=== PATIENT | female | born 1945 | race Caucasian/White ===

== ENCOUNTER → 2024-08-02 | Outpatient (CLI) | payer MEDICARE, MEDICAID, SELFPAY ==
--- NOTE | 2024-08-02 16:38 | XR_ITS ---
Examination: Lumbar spine, 5 views Technique: Lumbar spine AP, lateral, coned lateral lower lumbar spine, bilateral obliques 5 views Exam date and time: August 08, 2024 1640 hrs. Indications: Low back pain years Findings: Significant osteopenia Lumbar levoscoliosis 10 degrees Advanced diffuse facet arthropathy Moderate to advanced diffuse lumbar degenerative disc disease most severe L1-L2 No lumbar fracture Impression: Moderate to advanced lumbar degenerative disc disease with spinal stenosis
== END | disposition home or self-care (01) ==
PROVIDERS: PCP Family Medicine; Referring Provider Nurse Practitioner; Visit Provider Nurse Practitioner
DX: M51.369 Other intervertebral disc degeneration, lumbar region without mention of lumbar back pain or lower extremity pain (principal); M48.061 Spinal stenosis, lumbar region without neurogenic claudication
CPT/HCPCS: 72110

== ENCOUNTER → 2024-09-13 | Outpatient (CLI) | payer MEDICARE, MEDICAID, SELFPAY ==
--- NOTE | 2024-09-13 09:47 | XR_ITS ---
Examination: MRI lumbar spine without contrast Date and time of exam: September 13, 2024 10:10 AM INDICATIONS: Onset lower back pain radiating down both legs beginning 2021 TECHNIQUE: Multiple MRI axial sagittal images lumbar spine FINDINGS: Minimal anterolisthesis L2 on L1 No lumbar fracture Advanced disc narrowing L1-L2, L4-L5 Diffuse lumbar disc desiccation L5-S1 2 mm central lumbar disc bulge L4-L5 4 mm central lumbar disc bulge contiguous with the L5 nerve roots L3-L4 foraminal disc bulges greater on the right side, 5 mm with mild right L3 ganglionic compression L2-L3 no disc protrusion L1-L2 no disc protrusion Impression: Advanced degenerative disc disease L1-L2, L4-L5 L5-S1 2 mm central lumbar disc bulge L4-L5 4 mm central lumbar disc bulge contiguous with the right and left L5 nerve roots L3-L4 bilateral foraminal disc bulges, 5 mm on the right side with mild right L3 ganglionic compression
== END | disposition home or self-care (01) ==
PROVIDERS: PCP Family Medicine; Referring Provider Nurse Practitioner; Visit Provider Nurse Practitioner
DX: G95.20 Unspecified cord compression (principal); M51.369 Other intervertebral disc degeneration, lumbar region without mention of lumbar back pain or lower extremity pain; M51.379 Other intervertebral disc degeneration, lumbosacral region without mention of lumbar back pain or lower extremity pain
CPT/HCPCS: 72148

== ENCOUNTER → 2024-12-23 | Outpatient (CLI) | payer MEDICARE, MEDICAID, SELFPAY | END | disposition home or self-care (01) | PROVIDERS: PCP Student in an Organized Health Care Education/Training Program; Referring Provider Student in an Organized Health Care Education/Training Program; Visit Provider Student in an Organized Health Care Education/Training Program | DX: N39.0 Urinary tract infection, site not specified (principal) | CPT/HCPCS: 87086 ==

== ENCOUNTER → 2025-01-06 | Outpatient (CLI) | payer MEDICARE, MEDICAID, SELFPAY ==
--- NOTE | 2025-01-06 14:23 | XR_ITS ---
Examination: Duplex scan of the lower extremity, unilateral left Date and time of exam: January 06, 2025 1507 hours INDICATIONS: Left leg swelling and pain beginning 4 days ago Technique: Duplex scan of the extremity veins using B-mode/grayscale imaging and Doppler spectral analysis and color flow Attention is directed to internal echogenicity, compression and augmentation involving these veins, color flow assessment, spectral analysis Findings: Major deep venous structures in the extremity demonstrate normal course and caliber. There is no evidence of deep vein thrombosis. Normal color flow and spectral analysis Impression: Negative for DVT..
== END | disposition home or self-care (01) ==
LOC: CDIM 14:16
PROVIDERS: PCP Student in an Organized Health Care Education/Training Program; Referring Provider Chiropractor; Visit Provider Chiropractor
DX: M79.669 Pain in unspecified lower leg (principal); R60.0 Localized edema
CPT/HCPCS: 93971

== ENCOUNTER 2025-01-13 11:35 | Emergency (ER) | payer MEDICARE, MEDICAID, SELFPAY ==
[2025-01-13] VITALS (8 sets, daily range): BP systolic 134–159; BP diastolic 65–67; PULSE 85–88; RESP 16–18; TEMP 36.6–36.7; O2SAT 86–100; BMI 28.3
--- NOTE | 2025-01-13 11:43 | XR_ITS ---
Examination: CTA chest with intravenous contrast 2-D reconstructions 3-D reconstructions, vascular Date and time of exam: January 13, 2025 1413 hours INDICATIONS: Onset chest pain today CTDI: vol (mGy) 10.7 DLP: (mGycm) 328 Technique: Multiple axial sections of the thorax have been obtained. 3 mm slice thickness, from below the hemidiaphragms to above the apices of the lungs. Mediastinal and lung density settings have been obtained. 2-D sagittal and coronal reconstructions. 3-D angiographic renderings, 3-D volume renderings, 3D post processing, vascular maximum intensity projections obtained. Contrast administered is 100 cc Isovue-370. Low dose protocols were performed. One or more of the following dose reduction techniques were used; automated exposure control, adjustment of the mA and/or KV according to patient size, use of iterative reconstruction technique. Findings: No thoracic aorta aneurysm dilatation or dissection Main pulmonary artery segment 32 mm No pulmonary artery emboli. No paratracheal tracheobronchial or bronchopulmonary adenopathy Small foci of pneumonia in the left upper lobe Atelectasis at the right lung base No visualized liver lesions Spleen is not enlarged No pancreatic mass Moderate osteopenia IMPRESSION: Mild pulmonary artery hypertension pattern Negative for pulmonary artery emboli No mediastinal lymphadenopathy Mild pneumonia left upper lobe
--- NOTE | 2025-01-13 11:43 | XR_ITS ---
Examination: AP chest single view Technique : AP portable upright chest single view Date and time: January 13, 2025, 1236 hours INDICATIONS: Chest pain today FINDINGS: No significant cardiac enlargement. Cardiac leads satisfactory position Moderate vascular congestion. No lobar pneumonia. Prominent osteopenia IMPRESSION: Moderate vascular congestion.
--- NOTE | 2025-01-13 11:46 | PD.EDCHEST ---
ED Chest Pain RME/HPI General Chief Complaint: Chest Pain Stated Complaint: CHEST PAIN Time Seen by Provider: 01/13/25 11:43 Source: patient and EMS Arrival date/time: 01/13/25 11:35 Mode of arrival: EMS RME / HPI RME / HPI narrative: Patient is a 79-year-old female with a history of hypothyroidism, acid reflux, hypertension, remote history of DVT and pulmonary emboli. She denies history of ACS. She had a left leg ultrasound on on the of this month that was negative for DVT. She developed central chest pain that describes as a pressure this morning at around 8:30 AM. She has nausea. She denies any change in bowel movements. She has chronic lower leg edema without any acute changes. She has no fevers or chills. Has had no syncopal episodes. She states she followed by Dr. Roman with cardiology, she does not recall her last echocardiogram. She takes Eliquis. Related Data Home Medications ?Medication ?Instructions ?Recorded ?Confirmed pantoprazole 40 mg tablet,delayed 40 mg PO QDAY 03/05/18 02/18/24 release (Protonix) levothyroxine 137 mcg tablet 100 mcg PO QDAY 03/09/18 02/18/24 amlodipine 2.5 mg tablet 2.5 mg PO QDAY 02/18/24 02/18/24 apixaban 5 mg tablet (Eliquis) 5 mg PO BID 02/18/24 02/18/24 Held on 02/18/24. Instructions: Resume on 02/19/24. meloxicam 7.5 mg tablet 7.5 mg PO QDAY 02/18/24 02/18/24 Previous Rx's ?Medication ?Instructions ?Recorded amoxicillin 875 mg-potassium 1 tab PO BID #14 tabs 01/13/25 clavulanate 125 mg tablet azithromycin 250 mg tablet 250 mg PO QDAY 4 days #4 tabs 01/13/25 Allergies Allergy/AdvReac Type Severity Reaction Status Date / Time NSAIDS (Non-Steroidal Allergy Intermediate Abdominal Verified 01/13/25 11:50 Anti-Inflamma Pain vancomycin Allergy Intermediate Hives Verified 01/13/25 11:50 aspirin Allergy Unknown GI BLEED Verified 01/13/25 11:50 ketorolac (From Toradol) Allergy Verified 01/13/25 11:50 Review of Systems Review of Systems Systems Reviewed: All systems reviewed, normal except as documented Course Quality Measures none Orders Category Date Time Status CT Screening NOW Care 01/13/25 11:43 Active EKG (ED ONLY) *Do not use* NOW Care 01/13/25 11:[address] angio chest Stat Exams 01/13/25 11:43 Completed EKG (ED Only) Stat Exams 01/13/25 11:39 Ordered XR chest 1V Stat Exams 01/13/25 11:43 Completed BNP [B-Type Natriuretic Peptide] Stat Lab 01/13/25 12:03 Completed CBC Stat Lab 01/13/25 12:03 Completed CMP [Comprehensive Metabolic Panel] Stat Lab 01/13/25 12:03 Completed D-Dimer Stat Lab 01/13/25 12:03 Completed Lipase Stat Lab 01/13/25 12:03 Completed Mag [Magnesium] Stat Lab 01/13/25 12:03 Completed Troponin I Stat Lab 01/13/25 12:03 Completed Troponin I Stat Lab 01/13/25 13:36 Completed Amoxicillin/Pot Clav 875 [Augmentin 875] Med 01/13/25 14:59 Discontinued 1 tab PO X1 ONE Aspirin Chew Med 01/13/25 11:43 Discontinued 243 mg PO X1 ONE Azithromycin Po [Zithromax PO] Med 01/13/25 15:03 Discontinued 500 mg PO X1 ONE HYDROcodone*/APAP 5/325 [[place] 5/325] Med 01/13/25 15:10 Once 1 tab PO X1 ONE Magnesium Sulfate 1 gm Ivpb [Magnesium Sulfate Ivpb] Med 01/13/25 13:19 Discontinued 1 gm in 100 ml IV X1 Morphine Inj Med 01/13/25 11:43 Discontinued 4 mg IVP X1 ONE Nitroglycerin [Nitrostat 1/150] Med 01/13/25 11:43 Discontinued 0.4 mg SL X1 ONE Ondansetron Inj [Zofran Inj] Med 01/13/25 11:50 Discontinued 4 mg IVP X1 ONE Vital Signs Vital signs: Vital Signs Temperature 98.0 F 01/13/25 11:56 Pulse Rate 86 01/13/25 11:56 Respiratory Rate 18 01/13/25 11:56 Blood Pressure 159/67 H 01/13/25 11:56 Pulse Oximetry (%) 97 01/13/25 11:56 Oxygen Delivery Method Room Air 01/13/25 11:56 Chest Pain MDM Narrative MDM Narrative:: Patient is a 79-year-old female with a history of hypothyroidism, acid reflux, hypertension, remote history of DVT and pulmonary emboli. She denies history of ACS. She had a left leg ultrasound on on the of this month that was negative for DVT. She developed central chest pain that describes as a pressure this morning at around 8:30 AM. She has nausea. She denies any change in bowel movements. She has chronic lower leg edema without any acute changes. She has no fevers or chills. Has had no syncopal episodes. She states she followed by Dr. Roman with cardiology, she does not recall her last echocardiogram. She takes Eliquis. On exam, patient is in mild distress, she is anxious appearing. Vital signs are stable. Workup reveals no leukocytosis, her hemoglobin is 10.6 and hematocrit is 31.6. D-dimer is 631, this is marginally elevated. Metabolic panel reveals mild hyperglycemia at 115, magnesium is 1.0. Metabolic panel is otherwise unremarkable. Lipase is 31. Patient received a dose of magnesium 1 g here. 13:45 She was reassessed when the above results were reviewed and they were relayed to the patient. Although her D-dimer is marginally elevated, she states her mother from pulmonary emboli and she does have a history of prior DVT and PE. Her creatinine is 0.9. Her GFR is greater than 60. This were discussed with the patient. We offered to not obtain a CT a of her chest versus obtaining one today as she is concerned she have a pulmonary emboli.. We will continue with plans of obtaining a CT of the chest to assess for possible PE. She states her pain has improved and is tolerable at this time. She does not want any more pain medication. Work appears otherwise unremarkable with exception of developing in the morning Reviewed etiology her symptoms. Discussed and her daughter who has since arrived at bedside. Patient normally lives with her in her home. Awaiting currently hospitalized. Patient and daughter agree that the family can assist in observation at home for the next few days to make sure she is improving. She will be discharged with a prescription of azithromycin and Augmentin. These have not started here. We discussed pulmonary toiletry. They agreed to have a low threshold for return here anytime for any worsening or emergent changes. Patient data External records reviewed:: EMS form Clinical information provided by:: patient and family Social determinants that could affect healthcare access:: none Patient has the following chronic illnesses:: Hypertension, acid reflux, anxiety How is presenting disease/condition affected by chronic disease/condition?: exacerbated by Evaluation data The following diagnostics were reviewed and interpreted by me:: lab results (There is no leukocytosis, there is mild anemia with a hemoglobin 10.6 and hematocrit 31.6. D-dimer is elevated at 631. Magnesium 1.0), radiology exam(s) (Chest x-ray revealed vascular tension, otherwise unremarkable. CT of the chest was obtained which revealed no pulmonary emboli however pneumonia was identified.) and EKG tracing(s) (NSR at [address] changes or dynamic t-waves. Artifact is present. ) Lab and/or radiology exams considered but not ordered:: n/a Interpretation Summary: Hypomagnesia, pneumonia, repeat troponins were obtained and were unremarkable. Medications / Prescriptions Medications or Prescriptions considered but not ordered:: n/a Medication administrations:: Medication Administration History Discontinued Medications Amoxicillin/Clavulanate Potassium (Amoxicillin/Pot Clav 875 Tablet) 1 tab PO X1 ONE Stop: 01/13/25 15:00 Aspirin (Aspirin 81 Mg Chew) 243 mg PO X1 ONE Stop: 01/13/25 11:44 Last Admin: 01/13/25 11:51 Dose: Not Given Documented By: JASON Non-Admin Reason: Contraindicated Azithromycin (Azithromycin 250 Mg Tablet) 500 mg PO X1 ONE Stop: 01/13/25 15:04 Magnesium Sulfate/Dextrose (Magnesium Sulfate Ivpb) 1 gm in 100 mls @ 100 mls/hr IV X1 ONE Stop: 01/13/25 14:18 Last Infusion: 01/13/25 14:54 Dose: Infused Documented By: Admin: 01/13/25 13:51 Dose: 100 mls/hr Documented By: GIOVANNI Morphine Sulfate (Morphine Sulf Inj 10 Mg/Ml Vial) 4 mg IVP X1 ONE Stop: 01/13/25 11:44 Last Admin: 01/13/25 11:58 Dose: 4 mg Documented By: TM Nitroglycerin (Nitroglycerin 0.4 Mg Subl Btl #25) 0.4 mg SL X1 ONE Stop: 01/13/25 11:44 Last Admin: 01/13/25 11:56 Dose: 0.4 mg Documented By: TM Ondansetron HCl (Ondansetron Inj 2 Mg/Ml Inj 2 Ml) 4 mg IVP X1 ONE; Protocol Stop: 01/13/25 11:51 Last Admin: 01/13/25 12:01 Dose: 4 mg Documented By: JASON n/a Consultations Consultation(s) initiated? (list below): No Diagnosis Chest Pain Differential Diagnosis: atypical chest pain, st elevation myocardial infarction, costochondritis and chest pain Most likely diagnosis given after review of the tests above:: Pneumonia, hypomagnesia Admission Indicated Admission indicated?: not indicated Admission Request Was there a request for admission?: No Disposition Plan Disposition Plan: Discharge Discharge Attestation Discharge Attestation: The patient and all family members were given an opportunity to ask questions and understood the discharge instructions. Discharge instructions specifically effects, indications for sooner follow up or return to the emergency department, and the expected course of current diagnosis. Patient condition: Stable Discharge Plan Plan Patient Disposition: HOME (Self Care) Patient condition on transfer: Stable Prescriptions/Referrals Prescriptions/Med Rec: New amoxicillin-pot clavulanate 875-125 mg tablet 1 tab PO BID Qty: 14 0RF azithromycin 250 mg tablet 250 mg PO QDAY 4 Days Qty: 4 0RF Rx Instructions: start on day 2 of therapy No Action pantoprazole [Protonix] 40 mg Tablet,Delayed Release (Dr/Ec) 40 mg PO QDAY levothyroxine 137 mcg Tablet 100 mcg PO QDAY amlodipine 2.5 mg Tablet 2.5 mg PO QDAY meloxicam 7.5 mg Tablet 7.5 mg PO QDAY Eliquis 5 mg Tablet 5 mg PO BID Problem List Clinical Impression: Pneumonia, Non-cardiac chest pain Patient/Caregiver Discharge Instructions Education Materials: Treating Pneumonia, ED Chest Pain, Noncardiac Additional Instructions: - Continue antibiotics. Azithromycin to be taken once daily in the morning after today. Augmentin every 12 hours for total 7 days. - Start deep breathing exercises to improve pulmonary toiletry. - Please follow-up with your primary doctor within 1 week. - Please return to the emergency room anytime for any worsening or emergent changes. Print Language: [place] Stand Alone Forms: [employer] Award Info., Patient Portal Info Letter
[2025-01-13] MEDS: NITROGLYCERIN 0.4 MG SUBL BTL #25 SL (11:56)
[2025-01-13] MEDS: MORPHINE SULF INJ 10 MG/ML VIAL 4 MG IVP (11:58)
[2025-01-13] MEDS: ONDANSETRON INJ 2 MG/ML INJ 2 ML 4 MG IVP (12:01)
[2025-01-13 12:28] LABS: Basophils # (Auto) 0.0 Thou/mm3 (0.0-0.2); Basophils % (Auto) 1 % (0-2.5); Eosinophils # (Auto) 0.1 Thou/mm3 (0.0-0.5); Eosinophils % (Auto) 1 % (0-10); Hematocrit 31.6 % (36.0-46.0); Hemoglobin 10.6 g/dL (12.0-16.0); Immature Granulocytes Auto 0.03 Thou/mm3 (0.00-0.00); Lymphocytes # (Auto) 1.5 Thou/mm3 (1.0-4.8); Lymphocytes % (Auto) 18 % (10-50); Mean Corpuscular HGB Conc 33.5 g/dl (31.0-37.0); Mean Corpuscular Hemoglobin 31.8 pg (25.0-35.0); Mean Corpuscular Volume 95 fL (80-100); Monocytes # (Auto) 0.1 Thou/mm3 (0.0-0.8); Monocytes % (Auto) 1 % (0-12); Neutrophils # (Auto) 6.7 Thou/mm3 (1.8-7.7); Neutrophils % (Auto) 80 % (37-80); Nucleated Red Blood Cell # 0.00 Thou/mm3 (0.00-0.00); Nucleated Red Blood Cell % 0 /100 WBC (0); Platelet Count 259 Thou/mm3 (140-440); RDW Standard Deviation 45.9 fL (36.4-46.3); Red Blood Count 3.33 Miln/mm3 (4.00-5.20); White Blood Count 8.4 Thou/mm3 (3.6-11.0)
[2025-01-13 12:41] LABS: D-Dimer 631 ng/mL (<600)
[2025-01-13 12:59] LABS: B-Type Natriuretic Peptide 56 pg/mL (0-100)
[2025-01-13 13:00] LABS: Alanine Aminotransferase 14 U/L (10-49); Albumin, Serum 3.8 gm/dL (3.4-4.8); Albumin/Globulin Ratio 1.5 (1.2-2.2); Alkaline Phosphatase 74 U/L (46-116); Anion Gap 14 (7-16); Aspartate Amino Transferase 35 U/L (0-34); BUN/Creatinine Ratio 18 Ratio (12-20); Bilirubin,Total 0.7 mg/dL (0.3-1.2); Blood Urea Nitrogen 16 mg/dL (9-23); Calcium 10.0 mg/dL (8.3-10.6); Calcium (Corrected) 10.2 mg/dL (8.5-10.1); Carbon Dioxide 24.3 mMol/L (20.0-31.0); Chloride 104 mMol/L (98-107); Creatinine (Component) 0.9 mg/dL (0.6-1.3); Estimated Creatinine Clearance 52.9 mL/min (>60); Globulin 2.6 gm/dL (2.3-3.5); Glucose 115 mg/dL (74-106); Lipase 31 U/L (12-53); Magnesium 1.0 mg/dL (1.6-2.6); Osmolality,Calculated 285 (275-295); Potassium 3.7 mMol/L (3.4-5.1); Sodium 142 mMol/L (136-145); Total Protein 6.4 gm/dL (5.7-8.2); Troponin I < 0.020 ng/mL (0.0-0.045); eGFR > 60 See Note
[2025-01-13 14:00] LABS: Troponin I < 0.020 ng/mL (0.0-0.045)
[2025-01-13] MEDS: AZITHROMYCIN 250 MG TABLET 500 MG PO (15:29)
[2025-01-13] MEDS: AMOXICILLIN/POT CLAV 875 TABLET 1 TAB PO (15:29)
[2025-01-13] MEDS: HYDROcodone/APAP 5/325 TABLET 1 TAB PO (15:29)
== END 2025-01-13 15:53 | disposition home or self-care (01) ==
LOC: SERX 15:05
PROVIDERS: Physician Assistant Medical; Emergency Provider Emergency Medicine; PCP Student in an Organized Health Care Education/Training Program
DX: J18.9 Pneumonia, unspecified organism (principal); E83.42 Hypomagnesemia; E03.9 Hypothyroidism, unspecified; R73.9 Hyperglycemia, unspecified; F41.9 Anxiety disorder, unspecified; I10 Essential (primary) hypertension; K21.9 Gastro-esophageal reflux disease without esophagitis; D64.9 Anemia, unspecified; Z86.711 Personal history of pulmonary embolism; Z86.718 Personal history of other venous thrombosis and embolism; Z79.890 Hormone replacement therapy; Z79.01 Long term (current) use of anticoagulants; Z79.1 Long term (current) use of non-steroidal anti-inflammatories (NSAID); Z79.899 Other long term (current) drug therapy; Z88.1 Allergy status to other antibiotic agents; Z88.6 Allergy status to analgesic agent
CPT/HCPCS: 36415; 71045; 71275; 80053; 83690; 83735; 83880; 84484; 85025; 85379; 93005; 99283; A4649; J2270; J2405; J3475; Q9967; A9270

== ENCOUNTER → 2025-02-01 | Outpatient (CLI) | payer MEDICARE, MEDICAID, SELFPAY ==
[2025-02-01 11:29] LABS: Basophils # (Auto) 0.1 Thou/mm3 (0.0-0.2); Basophils % (Auto) 2 % (0-2.5); Eosinophils # (Auto) 0.2 Thou/mm3 (0.0-0.5); Eosinophils % (Auto) 4 % (0-10); Hematocrit 35.0 % (36.0-46.0); Hemoglobin 11.2 g/dL (12.0-16.0); Immature Granulocytes Auto 0.00 Thou/mm3 (0.00-0.00); Lymphocytes # (Auto) 1.8 Thou/mm3 (1.0-4.8); Lymphocytes % (Auto) 37 % (10-50); Mean Corpuscular HGB Conc 32.0 g/dl (31.0-37.0); Mean Corpuscular Hemoglobin 31.8 pg (25.0-35.0); Mean Corpuscular Volume 99 fL (80-100); Monocytes # (Auto) 0.4 Thou/mm3 (0.0-0.8); Monocytes % (Auto) 9 % (0-12); Neutrophils # (Auto) 2.3 Thou/mm3 (1.8-7.7); Neutrophils % (Auto) 48 % (37-80); Nucleated Red Blood Cell # 0.00 Thou/mm3 (0.00-0.00); Nucleated Red Blood Cell % 0 /100 WBC (0); Platelet Count 325 Thou/mm3 (140-440); RDW Standard Deviation 50.7 fL (36.4-46.3); Red Blood Count 3.52 Miln/mm3 (4.00-5.20); White Blood Count 4.8 Thou/mm3 (3.6-11.0)
[2025-02-01 11:41] LABS: Glucose Estimated Average 114 mg/dL (80-131); Hemoglobin A1C 5.6 % Hgb (4.8-6.0)
[2025-02-01 11:55] LABS: Alanine Aminotransferase 16 U/L (10-49); Albumin, Serum 4.0 gm/dL (3.4-4.8); Albumin/Globulin Ratio 1.3 (1.2-2.2); Alkaline Phosphatase 108 U/L (46-116); Anion Gap 13 (7-16); Aspartate Amino Transferase 21 U/L (0-34); BUN/Creatinine Ratio 20 Ratio (12-20); Bilirubin,Total 0.6 mg/dL (0.3-1.2); Blood Urea Nitrogen 18 mg/dL (9-23); Calcium 10.1 mg/dL (8.3-10.6); Calcium (Corrected) 10.1 mg/dL (8.5-10.1); Carbon Dioxide 27.2 mMol/L (20.0-31.0); Cardiac Risk Estimate 2.7 RATIO (3.7-5.6); Chloride 103 mMol/L (98-107); Cholesterol 134 mg/dL (132-200); Creatinine (Component) 0.9 mg/dL (0.6-1.3); Free T4 (Free Thyroxine) 1.21 ng/dL (0.89-1.76); Globulin 3.0 gm/dL (2.3-3.5); Glucose 93 mg/dL (74-106); HDL Cholesterol 49 mg/dL (40-60); LDL Cholesterol,Calculated 62 mg/dL (0-130); Osmolality,Calculated 286 (275-295); Potassium 4.1 mMol/L (3.4-5.1); Sodium 143 mMol/L (136-145); Thyroid Stimulating Hormone 0.58 uIU/mL (0.55-4.78); Total Protein 7.0 gm/dL (5.7-8.2); Triglycerides 114 mg/dL (30-150); eGFR > 60 See Note
== END | disposition home or self-care (01) ==
PROVIDERS: PCP Student in an Organized Health Care Education/Training Program; Referring Provider Student in an Organized Health Care Education/Training Program; Visit Provider Student in an Organized Health Care Education/Training Program
DX: E03.9 Hypothyroidism, unspecified (principal); I10 Essential (primary) hypertension
CPT/HCPCS: 36415; 80053; 80061; 83036; 84439; 84443; 85025

== ENCOUNTER → 2025-02-16 | Outpatient (CLI) | payer MEDICARE, MEDICAID, SELFPAY ==
[2025-02-16 15:12] LABS: OBS Performed By LAB; OBS QC OK? Yes
[2025-02-16 16:36] LABS: OBS Developer Lot # 4-24-551749; Occult Blood, Stool Negative (Negative); Occult Blood, Stool #2 Negative (Negative)
== END | disposition home or self-care (01) ==
LOC: SLDO 15:09
PROVIDERS: PCP Student in an Organized Health Care Education/Training Program; Referring Provider Student in an Organized Health Care Education/Training Program; Visit Provider Student in an Organized Health Care Education/Training Program
DX: Z12.11 Encounter for screening for malignant neoplasm of colon (principal)
CPT/HCPCS: 82270

== ENCOUNTER → 2025-03-14 | Outpatient (CLI) | payer MEDICARE, MEDICAID, SELFPAY ==
--- NOTE | 2025-03-14 09:26 | XR_ITS ---
Examination: Venous duplex lower extremity sonogram, bilateral. Date and time of exam: March 14, 2025, 1016 hours INDICATIONS: Bilateral leg swelling beginning 3 weeks ago Technique: Multiple sonographic images of the deep venous system have been obtained. B-mode/2-D grayscale imaging of vascular structures and Doppler spectral analysis (waveforms) and color performed Both legs are examined. Findings: Deep venous systems do not demonstrate abnormal echogenicity. All visualized deep veins exhibit compressibility. All visualized deep veins exhibit augmentation. Impression: Negative for deep vein thrombosis
== END | disposition home or self-care (01) ==
LOC: CDIM 09:18
PROVIDERS: PCP Family Medicine; Referring Provider Student in an Organized Health Care Education/Training Program; Visit Provider Student in an Organized Health Care Education/Training Program
DX: R60.9 Edema, unspecified (principal)
CPT/HCPCS: 93970

== ENCOUNTER → 2025-03-29 | Outpatient (CLI) | payer MEDICARE, MEDICAID, SELFPAY ==
--- NOTE | 2025-03-29 09:30 | XR_ITS ---
Examination: Breast ultrasound complete, bilateral Date and time of exam: March 29, 2025, 0917 hours INDICATIONS: Left breast sonogram January 12, 2024 12:00 nodule left breast 10 mm Technique: Real-time grayscale ultrasonographic imaging bilateral breasts, including all 4 quadrants as well as nipple retroareolar and axillary regions. Findings: Sonographic images right breast No cystic or solid mass Sonographic images left breast 12:00 nodule lobular margins 7 x 7 mm IMPRESSION: BI-RADS Category 2: Benign findings
--- NOTE | 2025-03-29 10:30 | XR_ITS ---
Examination: Screening digital mammography, bilateral Computer aided detection 3-D breast Tomosynthesis, bilateral Date and time of exam: 03/29/2025, 9:53 a.m. Comparisons: December 2021 through December 2023 Indications: Screening Technique: Nonmagnified MLO, CC views of the breasts to been obtained, reconstructed from 3-D Tomosynthesis images. R2 computer aided detection program utilized for evaluation of suspicious masses and/or abnormal calcifications. 3-D Tomosynthesis images obtained. Technologist: Findings: The breasts are heterogeneously dense, which may obscure small masses. No evidence of abnormal masses or suspicious calcifications. Stable left post biopsy marker clip. Impression: BI-RADS category 2: Benign findings Recommend 1 year follow-up mammogram
== END | disposition home or self-care (01) ==
LOC: CDIM 09:02
PROVIDERS: PCP Student in an Organized Health Care Education/Training Program; Referring Provider Student in an Organized Health Care Education/Training Program; Visit Provider Student in an Organized Health Care Education/Training Program
DX: Z12.31 Encounter for screening mammogram for malignant neoplasm of breast (principal); R92.323 Mammographic fibroglandular density, bilateral breasts; N63.25 Unspecified lump in the left breast, overlapping quadrants
CPT/HCPCS: 76641; 77063; 77067